=== PATIENT | male | born 1980 | race Caucasian/White ===

== ENCOUNTER 2023-05-16 20:44 | Emergency (ER) | payer MEDICAID ==
[~2023-05-16] VITALS: Ht 172.7 cm; Wt 88.5 kg
[2023-05-16 20:58] VITALS: BP_SYST 198; PULSE 94; RESP 16; TEMP 98.7; O2SAT 96
[2023-05-16] MEDS: LISINOPRIL 10 MG TABLET (PRINIVIL) PO ONE (21:13)
[2023-05-16] MEDS: KETOROLAC TROMETHAMINE 60 MG/2 ML VIAL IM ONE (21:14)
[2023-05-16 21:56] LABS: ANION GAP 10 (5-15); CALCIUM 9.4 mg/dL (8.4-11.0); CARBON DIOXIDE 29 mmol/L (23-29); CHLORIDE 101 mmol/L (98-107); CREATININE 1.07 mg/dL (0.55-1.30); GFR AFRICAN AMERICAN 96 mL/min (>90); GLUCOSE 131 mg/dL (74-106); POTASSIUM 3.8 mmol/L (3.5-5.1); SODIUM SERUM 140 mmol/L (136-145); UREA NITROGEN, BLOOD 10 mg/dL (8-21)
[2023-05-16 21:57] LABS: GFR NON AFRICAN-AMERICAN 79 mL/min (>90)
[2023-05-16 21:58] LABS: BASOPHILS % (AUTO) 0.4 % (0.0-2.0); EOSINOPHILS % (AUTO) 0.2 % (0.0-4.0); HEMATOCRIT 36.9 % (36-54); HEMOGLOBIN 12.8 g/dL (14.0-18.0); LYMPHOCYTES # (AUTO) 1.2 K/uL (1.0-5.5); LYMPHOCYTES % (AUTO) 12.6 % (20.5-51.5); MEAN CORPUSCULAR HEMOGLOBIN 29 pg (27-31); MEAN CORPUSCULAR HGB CONC 35 % (32-36); MEAN CORPUSCULAR VOLUME 85 fL (79.0-98.0); MONOCYTES # (AUTO) 0.8 K/uL (0.0-1.0); MONOCYTES % (AUTO) 8.4 % (1.7-9.3); NEUTROPHILS # (AUTO) 7.5 K/uL (1.8-7.7); NEUTROPHILS % (AUTO) 78.4 % (40.0-70.0); PLATELET COUNT (AUTO) 354 K/uL (130-430); RED BLOOD CELL COUNT(AUTO) 4.36 MIL/uL (4.2-6.2); RED CELL DISTRIBUTION WIDTH 14.9 % (9.0-15.0); WHITE BLOOD COUNT (AUTO) 9.5 K/uL (4.8-10.8)
[2023-05-16] MEDS: hydrALAZINE HCL 20 MG/ML VIAL IVP ONE (22:45)
[2023-05-16] MEDS: LABETALOL HCL 20 MG/4 ML CARTRIDGE IVP ONE (23:02)
[2023-05-17] MEDS: LABETALOL HCL 20 MG/4 ML CARTRIDGE IVP ONE (00:13)
[2023-05-17] MEDS ORDERED: LISI1TAB57 PO (00:29)
[2023-05-17] MEDS ORDERED: AMLO5TAB4 PO (00:29)
[2023-05-17 00:36] VITALS: BP_SYST 165; PULSE 83; RESP 21; TEMP 98; O2SAT 98
== END 2023-05-17 00:36 | disposition home or self-care (01) ==
LOC: SED 20:44
DX: S20.212A Contusion of left front wall of thorax, initial encounter (principal); I10 Essential (primary) hypertension; F10.20 Alcohol dependence, uncomplicated; Z79.899 Other long term (current) drug therapy; W01.0XXA Fall on same level from slipping, tripping and stumbling without subsequent striking against object, initial encounter; Y93.89 Activity, other specified; Y92.89 Other specified places as the place of occurrence of the external cause; Y99.8 Other external cause status; Y90.6 Blood alcohol level of 120-199 mg/100 ml
CPT/HCPCS: 99285; 96374; 71250; 71045; 96375; 80048; 83880; 85025; 84484; 36415; 71100; 96372; 96376; J0360; J1885

== ENCOUNTER 2023-12-31 11:52 | Emergency (ER) | payer MEDICAID, OTHER ==
[~2023-12-31] VITALS: Ht 172.7 cm; Wt 86.2 kg
[~2023-12-31 11:52] MED LIST: AMLO5TAB4 PO; LISI1TAB57 PO
[2023-12-31 11:55] VITALS: BP_SYST 131; PULSE 89; RESP 19; TEMP 97.3; O2SAT 97
[2023-12-31 14:29] LABS: BASOPHILS # (AUTO) 0.1 K/uL (0.0-0.2); BASOPHILS % (AUTO) 0.8 % (0.0-2.0); EOSINOPHILS # (AUTO) 0.1 K/uL (0.0-0.4); EOSINOPHILS % (AUTO) 0.8 % (0.0-4.0); HEMATOCRIT 41.9 % (36-54); HEMOGLOBIN 13.9 g/dL (14.0-18.0); LYMPHOCYTES # (AUTO) 0.7 K/uL (1.0-5.5); LYMPHOCYTES % (AUTO) 5.9 % (20.5-51.5); MEAN CORPUSCULAR HEMOGLOBIN 29 pg (27-31); MEAN CORPUSCULAR HGB CONC 33 % (32-36); MEAN CORPUSCULAR VOLUME 88 fL (79.0-98.0); MONOCYTES # (AUTO) 0.9 K/uL (0.0-1.0); MONOCYTES % (AUTO) 7.5 % (1.7-9.3); NEUTROPHILS # (AUTO) 10.8 K/uL (1.8-7.7); PLATELET COUNT (AUTO) 559 K/uL (130-430); RED BLOOD CELL COUNT(AUTO) 4.76 MIL/uL (4.2-6.2); RED CELL DISTRIBUTION WIDTH 13.3 % (9.0-15.0); WHITE BLOOD COUNT (AUTO) 12.7 K/uL (4.8-10.8)
[2023-12-31 14:45] LABS: ALBUMIN 3.3 g/dL (3.4-4.8); CALCIUM 9.5 mg/dL (8.4-11.0); CREATININE 1.18 mg/dL (0.55-1.30); POTASSIUM 4.3 mmol/L (3.5-5.1); TOTAL BILIRUBIN 0.4 mg/dL (0.0-1.0); TOTAL PROTEIN, SERUM 8.6 g/dL (6.4-8.3); URIC ACID 7.4 mg/dL (2.4-7.0)
[2023-12-31 16:00] VITALS: BP_SYST 136; PULSE 79; RESP 16; TEMP 98; O2SAT 98
[2023-12-31] MEDS ORDERED: DICL20GE TP (16:20)
[2023-12-31] MEDS ORDERED: HYDR-3927 PO (16:20)
[2023-12-31] MEDS ORDERED: INDO-12 PO (16:20)
[2023-12-31] MEDS ORDERED: CEPH-548 PO (16:20)
[2023-12-31] MEDS ORDERED: KETOROLAC TROMETHAMINE 60 MG/2 ML VIAL IM ONE (16:42)
[2023-12-31] MEDS: DEXAMETHASONE SOD PHOSPHATE 10 MG/ML VIAL IM ONE (16:52)
[2023-12-31] MEDS: cephALEXin 500 MG CAPSULE PO ONE (16:52)
[2023-12-31] MEDS: KETOROLAC TROMETHAMINE 60 MG/2 ML VIAL IM ONE (16:52)
== END 2023-12-31 16:53 | disposition home or self-care (01) ==
LOC: SED 11:52
DX: M10.9 Gout, unspecified (principal); I10 Essential (primary) hypertension; Z79.899 Other long term (current) drug therapy
CPT/HCPCS: 99284; 80053; 84550; 85025; 36415; 96372; J1100; J1885